=== PATIENT | male | born 2000 | race Caucasian/White ===

== ENCOUNTER 2021-12-19 20:47 | Emergency (ER) | payer OTHER, SELFPAY ==
[2021-12-19 20:50] VITALS: BP 140/80; PULSE 99; RESP 18; TEMP 36.3; O2SAT 98; BMI 36.9
--- NOTE | 2021-12-19 20:56 | W.ED.SEIZURE ---
HPI - Seizure General: Chief Complaint: Anxiety Stated Complaint: SEIZURE Time Seen by Provider: 12/19/21 20:56 Course Vital Signs: Vital signs: Vital Signs Temperature 97.3 F L 12/19/21 20:50 Pulse Rate 99 12/19/21 20:50 Respiratory Rate 18 12/19/21 20:50 Blood Pressure 140/80 12/19/21 20:50 Pulse Oximetry 98 12/19/21 20:50 Discharge Plan Discharge Condition: Stable Coding Level of Care Code ED [place] Mechanic for Dontae Mcrae
--- NOTE | 2021-12-19 20:57 | ED_ITS ---
HPI - Anxiety General: Chief Complaint: Anxiety Stated Complaint: SEIZURE Time Seen by Provider: 12/19/21 20:56 History of Present Illness: Mr. Hermosillo is a 21-year-old gentleman without significant past medical story who presents to the emergency department due to anxiety and abnormal episode. He reports being at his baseline health and had approximately 1 pint to less than 1 pint of urine earlier. Additionally he smoked marijuana. He has subsequently became anxious and parents were concerned regarding a change in mental status. Though with the stated complaint is seizure the patient denies loss of consciousness or shaking. He currently feels mildly anxious and generally mildly ill but denies other specific complaints. He denies focal neurologic changes. Intensity of symptoms is moderate. Course has improved. No other specific changes in health, exacerbating, or alleviating factors identified. Onset (ago): minute(s) Severity: moderate Provoking factors: other Review of Systems General: Reports: 10 or more systems reviewed and unremarkable except in HPI and below PFSH ED PFSH: Medical History No significant past medical history Surgical History No significant past surgical history Social History Alcohol intake: current Substance/Drug Use: current Physical Exam Const: COMMON NORMALS: patient oriented x3 and alert GENERAL APPEARANCE: cooperative and well developed HENMT: COMMON NORMALS: normocephalic and atraumatic HEAD & SCALP: normocephalic and atraumatic Eye: COMMON NORMALS: conjunctivae normal CONJUNCTIVA: Yes conjunctivae normal SCLERA: sclerae normal Neck/C-Spine: COMMON NORMALS: supple GENERAL: Yes trachea midline Resp: COMMON NORMALS: normal respiratory effort and clear to auscultation bilaterally EFFORT & INSPECTION: Yes able to speak in complete sentences AUSCULTATION: clear to auscultation bilaterally Cardio: COMMON NORMALS: regular rate and regular rhythm RATE: regular rate RHYTHM: regular rhythm GI: COMMON NORMALS: Soft to palpation PALPATION: Yes Soft to palpation and No Tenderness to palpation present (GI) PERCUSSION: normal to percussion Extremity: GENERAL: Yes normal exam except as noted and No edema Neuro: COMMON NORMALS: patient oriented x3, CN's II-XII intact bilaterally, moves all extremities, no focal motor deficits and no sensory deficits noted SENSORIUM/ORIENTATION: Yes alert and No Orientation impaired Psych: COMMON NORMALS: mental status grossly normal and Normal thought process present THOUGHT PROCESS: Normal thought process present Course ED course: - Patient was seen and evaluated by me at bedside - Patient placed on cardiac monitors, IV access obtained - Initial evaluation notable for exam as above -Imaging personally interpreted by me - Fluids given - Imaging notable for negative chest x-ray - Upon serial reexamination after treatment the patient was improved. Based on clinical history provided and discussion with the patient I do not feel that additional imaging or laboratory studies are needed at this time. - Based on patient history, evaluation, labs, and imaging as interpreted the most likely cause of the patient's condition is effects of polysubstance ingestion - The results of ED evaluation were discussed with the patient including prescriptions and/or symptomatic cares (if applicable) including appropriate and responsible use, followup plan, and return precautions. The patient verbalized understanding and felt safe for discharge. - Patient discharged in satisfactory condition. Note: Click bubbles or prepopulated anand in note writing are used for assistance with data collection and billing and are inherently more limited than narrative and other text portions of this note. Please use narrative for additional clinical history and defer to narrative/free test for any case of contradictory information. If information appears in only free text or click bubble it should be considered present or absent as reported. Please contact note real estate underwriter for clarifications of clinical information or contradictory information. MDM is a brief summary, contradictory or erroneous seeming information should be clarified and full note should be reviewed. Vital Signs: Vital signs: Vital Signs Temperature 97.3 F L 12/19/21 20:50 Pulse Rate 99 12/19/21 20:50 Respiratory Rate 18 12/19/21 20:50 Blood Pressure 140/80 12/19/21 20:50 Pulse Oximetry 98 12/19/21 20:50 MDM - Anxiety Medical Decision Making 21-year-old male presenting with anxiety and abnormal feeling after ingesting alcohol and marijuana. EKG and chest x-ray unremarkable. Patient improved after IV fluids. Satisfactory for discharge. Medical Records I reviewed the patient's medical records. Lab Data I reviewed the patient's lab results. Radiology Impressions Chest X-Ray 12/19/21 21:19 IMPRESSION: No acute findings. EKG Data EKG 1: I personally reviewed and interpreted this EKG as follows: EKG interpretation date: 12/19/21 EKG interpretation time: 22:20 Interpretation: Chest X-Ray 12/19/21 21:19 IMPRESSION: No acute findings. Twelve-lead EKG shows a regular rhythm at a rate of 77. AR interval 157 , QRS duration 101, QTc 394. Normal axis. Interpretation: Sinus rhythm. Other EKG comments: Chest X-Ray 12/19/21 21:19 IMPRESSION: No acute findings. Discharge Plan Discharge Clinical Impression: Acute anxiety, Ingestion of substance Prescriptions: No Action No Known Home Medications 0RF Discharge Orders: Discharge ED (Routine); Ordered 12/19/21 Ordered By: Lee Sterling Discharge Diet: Usual diet Discharge Activity: Resume usual activity Patient Instructions: Altered Mental Status (ED), Anxiety (ED) Activity Restrictions/Additional Instructions: Thank you for visiting the emergency department. You were seen and evaluated for mental status changes. We are pleased that this has improved. The exact cause is unclear but may be related to anxiety state or ingestion of substances in combination. Please follow-up with your primary care provider. Please return to the emergency department for any changes in mental status, any new focal neurologic deficits, chest pain, shortness of breath, or anything else that you are concerned about and feel needs emergency department evaluation. Coding Level of Care Code ED Radiation Physicist for Dontae Mcrae
--- NOTE | 2021-12-19 21:19 | ECG_ITS ---
[facility] Test Date: 2021-12-19 Pat Name: ROSANGELA CHARLES Department: Room: Gender: Male Care Process Manager: : 2000 Requested By: Lee Sterling Order Number: [id number] Sykes MD: Roland Gallagher M.D. Measurements Intervals [place] Rate: 77 P: 47 AR: 157 QRS: 34 QRSD: 101 T: 29 QT: 363 QTc: 411 Interpretive Statements SINUS RHYTHM No previous ECG available for comparison Electronically Signed On 12-19-2021 22:19:09 CDT by Roland Gallagher M.D. [id number]
--- NOTE | 2021-12-19 21:19 | XRR_ITS ---
PROCEDURE INFORMATION: Exam: XR Chest Exam date and time: 12/19/2021 9:19 PM Age: 21 years old Clinical indication: Pain; Chest pressure; Patient HX: C/O mild chest discomfort. TECHNIQUE: Imaging protocol: XR of the chest. Views: 1 view. COMPARISON: No relevant prior studies available. FINDINGS: Lungs: Unremarkable. No consolidation. Pleural spaces: Unremarkable. No pleural effusion. No pneumothorax. Heart/Mediastinum: Unremarkable. No cardiomegaly. Bones/joints: Unremarkable. XR/XR chest 1V portable [id number] IMPRESSION: No acute findings.
[2021-12-19] MEDS: lactated ringers 1,000 ML 999 ML IV (21:42)
== END 2021-12-19 22:45 | disposition home or self-care (01) ==
PROVIDERS: Emergency Provider Emergency Medicine
DX: F41.9 Anxiety disorder, unspecified (principal); T40.715A Adverse effect of cannabis, initial encounter
CPT/HCPCS: 71045; 93005; 96360; 99283